=== PATIENT | female | born 1980 | race African-American/Black ===

== ENCOUNTER 2018-01-27 15:14 | Emergency (ER) | payer MEDICAID, OTHER ==
[~2018-01-27] VITALS: Ht 167.6 cm; Wt 58.6 kg
[~2018-01-27 15:14] MED LIST: CYCL10B PO; FERR324T4 PO; HYDR-3965 PO; IBUP-1672 PO; MIRALAX PO
[2018-01-27] MEDS ORDERED: METH2.5T6 PO (15:20)
[2018-01-27] MEDS ORDERED: DIAZEPAM 5 MG TABLET PO ONE (16:00)
[2018-01-27] MEDS ORDERED: KETOROLAC TROMETHAMINE 10 MG TABLET PO ONE (16:00)
[2018-01-27 17:00] VITALS: BP 114/81
== END 2018-01-27 17:31 | disposition home or self-care (01) ==
LOC: EMS 15:15
DX: S13.4XXA Sprain of ligaments of cervical spine, initial encounter (principal); G43.909 Migraine, unspecified, not intractable, without status migrainosus; Z79.899 Other long term (current) drug therapy; V49.49XA Driver injured in collision with other motor vehicles in traffic accident, initial encounter; Y93.89 Activity, other specified; Y92.488 Other paved roadways as the place of occurrence of the external cause; Y99.8 Other external cause status
CPT/HCPCS: 99283